=== PATIENT | male | born 1980 | race African-American/Black ===

== ENCOUNTER 2017-12-06 02:12 | Emergency (ER) | payer SELFPAY ==
[~2017-12-06] VITALS: Ht 170.2 cm; Wt 68.0 kg
[2017-12-06] MEDS ORDERED: HYDROCODONE/ACETAMINOPHEN 5/325MG TABLET PO ONE (10:00)
[2017-12-06] MEDS ORDERED: IBUPROFEN 400MG TABLET PO ONE (10:00)
[2017-12-06 11:58] VITALS: BP 148/91
== END 2017-12-06 12:12 | disposition home or self-care (01) ==
LOC: ER 02:12
DX: S52.572A Other intraarticular fracture of lower end of left radius, initial encounter for closed fracture (principal); F17.200 Nicotine dependence, unspecified, uncomplicated; F12.10 Cannabis abuse, uncomplicated; W19.XXXA Unspecified fall, initial encounter; Y93.89 Activity, other specified; Y92.89 Other specified places as the place of occurrence of the external cause; Y99.8 Other external cause status
CPT/HCPCS: 29125; 73090; 73110; 73130; 99284